=== PATIENT | female | born 1995 | race Caucasian/White ===

== ENCOUNTER 2016-12-15 21:33 | Emergency (ER) | payer MEDICAID | END 2016-12-16 01:18 | disposition home or self-care (01) | LOC: ER 21:33 | DX: S42.124A Nondisplaced fracture of acromial process, right shoulder, initial encounter for closed fracture (principal); X50.9XXA Other and unspecified overexertion or strenuous movements or postures, initial encounter | CPT/HCPCS: 71020; 72050; 72072; 81025 ==